=== PATIENT | female | born 1970 | race Caucasian/White ===

== ENCOUNTER 2017-02-26 02:55 | Emergency (ER) | payer MEDICAID ==
--- NOTE | 2017-02-26 03:18 | ED Physician Chart ---
Chief Complaint/HPI - Patient Information Date Seen:: 02/26/17 Time Seen:: 03:00 Chief Complaint:: ear pain History of Present Illness:: 46-year-old female complains of acute, constant, worsening, moderate, aching and itching, nonradiating, right ear pain 1 week. Says that she has associated sensation of having a water here. Says that during the shower about a week ago she felt as though she got water stuck in her ear. Historian:: Patient Review:: Nurse's Note Reviewed Review of Systems - Review of Systems Other: Complete system review otherwise unremarkable except as noted in history of present illness. Past Medical History - Past Medical History Past Medical History: No significant medical hx Family History: None Social History: Smoker, No Alcohol, No Drug Use, Other Surgical History: None Psychiatricy History: None Medication: None Family Medical History - Family Member Mother History Unknown: Yes Physical Exam - Physical Examination Other:: INITIAL VITAL SIGNS: Reviewed by me GENERAL: Alert and interactive. No acute distress HEAD: Head is normocephalic and atraumatic EYES: EOMI. PERRL. No scleral icterus. No conjunctival injection ENT: Right ear canal is full of purulent discharge obscuring the TM NECK: Supple. No masses. Full range of motion RESPIRATORY: No tachypnea. Clear breath sounds bilaterally. No wheezing, rales, or rhonchi CV: Regular rate and rhythm. No murmurs, rubs, or gallops ABDOMEN: Soft, non-distended, non-tender. No guarding. No rebound. No masses. EXTREMITIES: No deformity. No cyanosis. No edema. SKIN: Warm and dry. No obvious rashes. NEUROLOGIC: Alert and oriented. Face is symmetric. Speech is normal. Moves all extremities equally. Motor and sensory distally intact. Assessment - Assessment General Assessment: SMOKING CESSATION COUNSELING: I spent greater than 3 minutes at the bedside with the patient discussing the benefits of smoking cessation, including decreased risk of heart disease, lung cancer, and emphysema. We also discussed strategies for smoking cessation, including pharmaceutical options. The patient was also encouraged to follow up with the primary care physician for outpatient follow-up. ED Septic Shock - . Is Septic Shock (SBP<90, OR Lactate>4 mmol\L) present?: No Reassessment (Disposition) - Reassessment Reassessment:: Patient presents with right ear pain 1 week. Has associated sensation of having water in her ear. Says that about one week ago she got water stuck in her ear after showering. Physical exam consistent with otitis externa. Will prescribe Cortisporin antibiotic and hydrocortisone combination eardrops. Follow-up primary care on exudates. Return to ER precautions given. Patient says she understands and agrees with the plan. Blood pressure was noted to be elevated over 120/80. There were no signs of hypertension. Discussed the findings with the patient and recommended that the patient follow up with the primary care physician regarding the elevated blood pressure. Reassessment Condition:: Improved - Diagnosis Diagnosis:: Acute right ear pain due to acute right-sided otitis externa Elevated blood pressure without diagnosis of hypertension Tobacco abuse - Aftercare/Follow up Instructions Aftercare/Follow-Up Instructions:: Counseled pt regarding lab results/diagnosis & need follow up, Refer to Discharge Instructions Medication Prescribed:: Cortisporin otic 4 GGT to right ear every 6 hours 7 days - Patient Disposition Discharge/Transfer:: Home Time:: 03:18 Condition at Disposition:: Improved ED Discharge Plan - Patient Disposition Admit/Discharge/Transfer: PT DISCHARGED HOME Condition at Disposition: Improved Instructions: Otitis Externa, [id number]
== END 2017-02-26 03:35 | disposition home or self-care (01) ==
LOC: ER 02:55
DX: H60.91 Unspecified otitis externa, right ear (principal); R03.0 Elevated blood-pressure reading, without diagnosis of hypertension; F17.200 Nicotine dependence, unspecified, uncomplicated
CPT/HCPCS: Z7502